=== PATIENT | male | born 1955 ===

== ENCOUNTER 2022-08-13 04:27 | Day surgery (SDC) | payer OTHER ==
[2022-08-12 07:09] VITALS: BMI 25.0
[2022-08-13 11:20] VITALS: TEMP 98
[2022-08-13 12:27] VITALS: BP 144/67; PULSE 59; RESP 15
== END 2022-08-13 12:27 | disposition home or self-care (01) ==
LOC: JASU-ENDO 04:27
PROVIDERS: ATTEND Internal Medicine Gastroenterology
PROC: 0DB78ZX Excision of Stomach, Pylorus, Via Natural or Artificial Opening Endoscopic, Diagnostic (ICD-10-PCS; 2022-08-13)
PROC: 0DB68ZX Excision of Stomach, Via Natural or Artificial Opening Endoscopic, Diagnostic (ICD-10-PCS; principal; 2022-08-13 11:00)
DX: K29.50 Unspecified chronic gastritis without bleeding (principal)
CPT/HCPCS: 88305-TC; 88342-TC